=== PATIENT | male | born 1960 | race Caucasian/White ===

== ENCOUNTER 2018-02-24 22:29 | Emergency (ER) | payer OTHER ==
[~2018-02-24] VITALS: Ht 175.3 cm; Wt 83.7 kg
[~2018-02-24 22:29] MED LIST: ACET-1311 PO; NPR500 PO
[2018-02-24 22:32] VITALS: TEMP 37; Ht 175.3 cm; Wt 83.7 kg
[2018-02-24] MEDS ORDERED: SODIUM CHLORIDE 0.9% 1000ML 1,000 ML IV STA (22:49)
[2018-02-24 23:10] LABS: BASO % 0.2 %; BASO ABS # 0.02 K/uL (0-0.2); EOS ABS # 0.27 K/uL (0-0.5); HEMATOCRIT 43.4 % (42-52); HEMOGLOBIN 15.1 g/dL (14.0-18.0); IG# 0.02 K/uL (0.00-0.02); LYMPH % 11.8 %; LYMPH ABS # 1.07 K/uL (1.2-3.4); MEAN CELL VOLUME 87.7 fL (80-100); MEAN CORPUSCULAR HEMOGLOBIN 30.5 pg (25-34); MEAN CORPUSCULAR HGB CONC 34.8 g/dl (32-36); MEAN PLATELET VOLUME 11.4 fL (7.4-10.4); MONO % 13.1 %; MONO ABS # 1.18 K/uL (0.11-0.59); NEUT % 71.7 %; NEUT ABS # 6.48 K/uL (1.4-6.5); PLATELET COUNT 152 K/uL (130-400); RED CELL DISTRIBUTION WIDTH CV 12.7 % (11.5-14.5); RED CELL DISTRIBUTION WIDTH SD 40.8 fL (36.4-46.3); WHITE BLOOD COUNT 9.04 K/uL (4.8-10.8)
[2018-02-24 23:31] LABS: ALBUMIN 3.7 gm/dl (3.4-5.0); CALCIUM 8.8 mg/dl (8.5-10.1); CREATININE 1.16 mg/dl (0.60-1.40); POTASSIUM 3.9 mmol/L (3.5-5.1)
[2018-02-24 23:34] LABS: TOTAL PROTEIN 7.8 gm/dl (6.4-8.2)
[2018-02-25 00:35] VITALS: BP 138/92; PULSE 70; O2SAT 95
--- NOTE | 2018-02-25 02:09 | EMERGENCY ROOM VISIT NOTE ---
History Report prepared by Shaneka: Goldy Moran Under the Supervision of: Dr. Porfirio Sow M.D. First contact with patient: 22:42 Chief Complaint: ILLNESS Stated Complaint: ACHEY, DRY THROAT History of Present Illness The patient is a 57 year old male who presents to the Emergency Room with complaints of persistent generalized achiness that began a couple of days ago. He rates his discomfort as a 3/10 in severity. The patient states that he woke up a couple of days ago with a pain in his muscles just above his knees bilaterally and an aching sensation all over his body. He reports he has also been experiencing a dry sensation in his throat that feels as if he wants to cough. The patient states that he does cough at times. He reports that he took Advil for his symptoms today. The patient states that the Advil did help alleviate his symptoms. He denies sore throat, headache, fever, vomiting, any tick contact, being out in the [place], any physical activity that would cause his symptoms, urinary symptoms, abdominal pain, diarrhea, shortness of breath, and chest tightness. Source of History: patient Onset: a couple of days ago Position: other (global) Symptom Intensity: 3/10 Quality: ache Timing: other (persistent) Modifying Factors (Relieving): other (Advil) Associated Symptoms: + cough, No fevers, No headache, No sorethroat, No chest pain, No SOB, No vomiting, No abdominal pain, No diarrhea, No urinary symptoms Note: Associated symptoms: dry throat Review of Systems See HPI for pertinent positives & negatives. A total of 10 systems reviewed and were otherwise negative. Past Medical & Surgical Medical Problems: (1) Herniated disc Family History Diabetes mellitus Heart disease Hypertension Social History Smoking Status: Never Smoker Alcohol Use: none Drug Use: none Marital Status: Occupation Status: employed Current/Historical Medications Scheduled PRN Acetaminophen (Tylenol), 650 MG PO Q4H PRN Naproxen (Naprosyn), 500 MG PO BID PRN Miscellaneous Medications None (Patient States No Home Meds) Allergies Coded Allergies: No Known Allergies (Unverified , NONE, 01/09/12) Physical Exam Vital Signs Date Time Temp Pulse Resp B/P (MAP) Pulse Ox O2 Delivery O2 Flow Rate FiO2 02/25/18 00:35 70 18 138/92 95 02/24/18 22:32 37.0 96 18 146/89 95 Room Air Physical Exam Constitutional: Vital signs reviewed. Eyes: Pupils are equal round reactive to light. Conjunctiva are noninjected. ENT: Pharynx is clear without erythema or exudate. Mucous membranes are moist. Neck supple without meningeal signs. Respiratory: Clear to auscultation bilaterally. Breath sounds are equal bilaterally. Cardiovascular: Regular rate and rhythm. No rubs or gallops. GI: Soft, nondistended and nontender. Bowel sounds are present. Musculoskeletal: No peripheral edema. No lower extremity tenderness. No erythema swelling or tenderness to the knees or thighs. Integumentary: No cyanosis. Neurological: The patient is awake and alert. No focal deficits. Psychiatric: Normal affect. Medical Decision & Procedures Laboratory Results 02/24/18 22:55 Red Blood Count 4.95, Mean Corpuscular Volume 87.7, Mean Corpuscular Hemoglobin 30.5, Mean Corpuscular Hemoglobin Concent 34.8, Mean Platelet Volume 11.4, Neutrophils (%) (Auto) 71.7, Lymphocytes (%) (Auto) 11.8, Monocytes (%) (Auto) 13.1, Eosinophils (%) (Auto) 3.0, Basophils (%) (Auto) 0.2, Neutrophils # (Auto ) 6.48, Lymphocytes # (Auto) 1.07, Monocytes # (Auto) 1.18, Eosinophils # (Auto ) 0.27, Basophils # (Auto) 0.02 02/24/18 22:55 Test 02/24/18 22:55 White Blood Count 9.04 K/uL (4.8-10.8) Red Blood Count 4.95 M/uL (4.7-6.1) Hemoglobin 15.1 g/dL (14.0-18.0) Hematocrit 43.4 % (42-52) Mean Corpuscular Volume 87.7 fL (80-100) Mean Corpuscular Hemoglobin 30.5 pg (25-34) Mean Corpuscular Hemoglobin Concent 34.8 g/dl (32-36) Platelet Count 152 K/uL (130-400) Mean Platelet Volume 11.4 fL (7.4-10.4) Neutrophils (%) (Auto) 71.7 % Lymphocytes (%) (Auto) 11.8 % Monocytes (%) (Auto) 13.1 % Eosinophils (%) (Auto) 3.0 % Basophils (%) (Auto) 0.2 % Neutrophils # (Auto) 6.48 K/uL (1.4-6.5) Lymphocytes # (Auto) 1.07 K/uL (1.2-3.4) Monocytes # (Auto) 1.18 K/uL (0.11-0.59) Eosinophils # (Auto) 0.27 K/uL (0-0.5) Basophils # (Auto) 0.02 K/uL (0-0.2) RDW Standard Deviation 40.8 fL (36.4-46.3) RDW Coefficient of Variation 12.7 % (11.5-14.5) Immature Granulocyte % (Auto) 0.2 % Immature Granulocyte # (Auto) 0.02 K/uL (0.00-0.02) Anion Gap 6.0 mmol/L (3-11) Est Creatinine Clear Calc Drug Dose 71.1 ml/min Estimated GFR () 81.1 Estimated GFR (Non- 70.0 BUN/Creatinine Ratio 8.6 (10-20) Calcium Level 8.8 mg/dl (8.5-10.1) Total Bilirubin 0.8 mg/dl (0.2-1) Direct Bilirubin 0.2 mg/dl (0-0.2) Aspartate Amino Transf (AST/SGOT) 33 U/L (15-37) Alanine Aminotransferase (ALT/SGPT) 71 U/L (12-78) Alkaline Phosphatase 52 U/L (45-117) Total Creatine Kinase 103 U/L (39-308) Total Protein 7.8 gm/dl (6.4-8.2) Albumin 3.7 gm/dl (3.4-5.0) Lyme Disease IgG Antibody NEG (NEG) Lyme Disease IgM Antibody NEG (NEG) Laboratory results as reviewed by me. Medications Administered Medications (Trade) Dose Ordered Sig/Tyler Route Start Time Stop Time Status Last Admin Dose Admin Sodium Chloride 1,000 ml @ 999 mls/hr Q1H1M STAT IV 02/24/18 22:49 02/24/18 23:49 DC 02/24/18 23:07 999 MLS/HR ED Course 2247: The patient was evaluated in room B05. A complete history and physical exam was performed. 2249: Ordered Sodium Chloride 1000 ml @ 999 mls/hr IV. 0001: I reevaluated the patient and he feels better. He reports that the dryness in his throat is resolved. I discussed the lab results. He verbalized agreement of the treatment plan. The patient was discharged home. Medical Decision This is a 57-year-old male who presents with generalized achiness. Differential diagnosis includes myalgias, myofascial disorder, rhabdomyolysis, dehydration, Lyme disease. I did perform a limited focused review of portions of the patient's old chart on the electronic medical record. The patient has had no recent pertinent visits to this hospital. I did evaluate the patient as noted above. The patient is presenting with generalized weakness. He has no focal symptoms anywhere other than stating that the muscles just above his knees are sore. His examination is unremarkable. IV access was established. I did treat the patient with normal saline IV. I did order and review the patient's blood work as noted in the electronic medical record. His labs are unremarkable. Lyme testing is negative. I did reassess the patient. He states he is feeling much better at this time. I did discuss the test results with him and his family. The cause of his symptoms is unclear and so I did recommend close follow-up with his doctor. He was discharged in good condition. Medication Reconcilliation Current Medication List: was personally reviewed by me Blood Pressure Screening Patient's blood pressure: Elevated blood pressure Blood pressure disposition: Referred to PCP Impression Primary Impression: Body aches Scribe Attestation The scribe's documentation has been prepared under my direct and personally reviewed by me in its entirety. I confirm that the note above accurately reflects all work, treatment, procedures, and medical decision making performed by me. Departure Information Dispostion Home / Self-Care Referrals Nir Spangler M.D. (PCP) Forms HOME CARE DOCUMENTATION FORM, IMPORTANT VISIT INFORMATION, WORK / SCHOOL INSTRUCTIONS Patient Instructions My [facility] Additional Instructions You have been examined and treated today on an emergency basis only. This is not a substitute for, or an effort to provide, complete comprehensive medical care. It is impossible to recognize and treat all injuries or illnesses in a single emergency department visit. It is therefore important that you follow up closely with your physician. Call as soon as possible for an appointment. Return for worsening symptoms or if you develop fever, vomiting, or any other concerning symptoms.
== END 2018-02-25 00:37 | disposition home or self-care (01) ==
LOC: C.EDB 22:30
DX: M79.1 Myalgia (principal); J39.2 Other diseases of pharynx; R03.0 Elevated blood-pressure reading, without diagnosis of hypertension

== ENCOUNTER 2019-01-24 12:02 | Observation (INO) ==
[2019-01-24] MEDS ORDERED: SODIUM CHLORIDE 0.9% 1000ML 1,000 ML IV ONE (12:08)
[2019-01-24] MEDS ORDERED: ONDANSETRON INJ 2 MG/ML 2 ML VIAL IV STA (12:08)
[2019-01-24] MEDS ORDERED: SODIUM CHLORIDE 0.9% 1000ML 1,000 ML IV SCH (13:15)
--- NOTE | 2019-01-24 13:18 | Emergency Department Note ---
Entered by Medina Ramirez acting as a scribe for John Hutchison MD History of Present Illness General Chief complaint: Syncope Time Seen by Provider: 01/24/19 12:07 Source: patient Mode of arrival: EMS History of Present Illness Provider complaint: syncope Onset (ago): minute(s) (prior to arrival) Location: head Severity: similar to prior episodes Pain Consistency: + other (episode) Quality: + other (syncope) Associated symptoms: + other (lightheadedness, nauseous, dizziness. Denies: chest pain, shortness of breath) The patient is a 58 year old male who presents to the Emergency Room with complaints of an episode of syncope beginning prior to arrival. He notes he was discharged from the ED following a diagnosis of influenza A, and lost consciousness while in an Uber home from that visit. The patient reports he felt lightheaded, nauseous, and dizzy, similar to his episode earlier this morning. He states he asked his petroleum transport driver to coverage specialist, and lost consciousness. The petroleum transport driver called EMS, who brought the patient to the ED. He denies shortness of breath or chest pain. The patient states he feels fine currently. Home Medications Home Medications Medication Instructions Recorded Confirmed Type lisinopril 10 mg PO DAILY 01/24/19 01/24/19 History oseltamivir [Tamiflu] 75 mg PO BID 5 Days #10 cap 01/24/19 01/24/19 Rx Allergies Allergy/AdvReac Type Severity Reaction Status Date / Time No Known Allergies Allergy NONE Unverified 01/24/19 12:49 Past Med/Surg History Medical History Herniated disc Family History Other Diabetes Heart disease Hypertension Social History Feels Safe at Home: Yes Smoking Status: Never smoker Review of Systems See HPI for pertinent positives & negatives. and A total of 10 systems reviewed and were otherwise negative Physical Exam Vital Signs Vital Signs - 24 hr 01/24/19 12:07 01/24/19 12:30 01/24/19 13:00 Temperature 36.7 C Temperature Source Oral Sepsis Recent Fever Within 48 Hours No Sepsis Action Taken by Nursing No Action Required Pulse Rate 99 H 69 81 Pulse Rate [Apical] Pulse Rate from SpO2 Sensor 69 81 Pulse Rhythm Regular Respiratory Rate 20 22 24 Blood Pressure 115/74 115/74 136/88 Blood Pressure [Right Arm] Blood Pressure Mean 87 87 104 Blood Pressure Mean [Right Arm] Blood Pressure Position Lying Pulse Oximetry 99 95 97 Oxygen Delivery Method Room Air 01/24/19 14:07 Temperature Temperature Source Sepsis Recent Fever Within 48 Hours Sepsis Action Taken by Nursing Pulse Rate Pulse Rate [Apical] 70 Pulse Rate from SpO2 Sensor Pulse Rhythm Respiratory Rate 16 Blood Pressure Blood Pressure [Right Arm] 128/92 Blood Pressure Mean Blood Pressure Mean [Right Arm] 104 Blood Pressure Position Pulse Oximetry 96 Oxygen Delivery Method Room Air GENERAL: Patient is in no acute distress. HEENT: No acute trauma, normocephalic atraumatic, mucous membranes moist, no nasal congestion, no scleral icterus. NECK: No stridor, no adenopathy, no meningismus, trachea is midline. LUNGS: Clear to auscultation bilaterally, no wheeze, no rhonchi, breath sounds equal. HEART: Without murmurs gallops or rubs, regular rate and rhythm. ABDOMEN: Soft, nontender, bowel sounds positive, no hernias, no peritonitis. EXTREMITIES: No cyanosis or edema, full range of motion of all the joints without pain or difficulty, no signs for acute trauma. NEUROLOGIC: Oriented x 3, no acute motor or sensory deficits, no focal weakness. SKIN: No rash, no jaundice, no diaphoresis. Course 1206: Past medical records reviewed. The patient was evaluated in room C9, and a complete history and physical examination were performed. 1214: I [facility] the [facility] She will evaluate the patient for further management. Consultations Consult[facility] #1[facility] Time: 12:14 Administered Medications Discontinued Medications Sodium Chloride (Nss 1000ml) 1,000 mls @ 999 mls/hr IV .Q1H1M ONE Stop: 01/24/19 13:08 Last Infusion: 01/24/19 13:25 Dose: 0 mls/hr Documented by: [id number] Admin: 01/24/19 12:22 Dose: 999 mls/hr Documented by: [id number] Ondansetron HCl (Zofran) 4 mg IV NOW STA Stop: 01/24/19 12:09 Last Admin: 01/24/19 12:22 Dose: 4 mg Documented by: [id number] Medical Decision Making Differential Diagnosis Differential Diagnosis includes: influenza or flu-like illness, bronchitis or pneumonia, anemia, electrolyte imbalance, dehydration, dysrythmia, orthostasis. Medical Records Attestation: I reviewed the patient's medical records. Home Medications Current Medication List: was personally reviewed by me ECG Data Attestation: I personally reviewed and interpreted this ECG as follows: Indication: syncope Rate (beats per minute): 66 Findings: no PVC and no ST elevation Comparison ECG Date: from (01/24/19) Change: no significant change Blood Pressure Blood Pressure Findings: Normal blood pressure Blood Pressure Disposition: did not require urgent referral MDM Narrative The patient presents for syncope. He had been seen earlier in the day in our ED by me for syncope and eventually was diagnosed with influenza A. He was discharged. His laboratory workup was unrevealing, his cardiac workup was unrevealing. The patient was riding home when he felt lightheaded and dizzy and nauseated, he had a brief syncopal spell and was brought back to the ED by ambulance. Upon arrival, the patient feels dizzy but otherwise well, there was no chest pain with the episode, no dyspnea. Repeat EKG shows a sinus rhythm, no acute ischemia. The patient was given IV saline for hydration, he received IV Zofran Given the recurrent syncope, I do think a hospital stay is warranted. I do suspect his presentation is from the flu. He may be somewhat dehydrated. I did speak to the patient and case packer and sealer. The on-call hospitalist was consulted. Impression & Plan Syncope, Influenza A, Dehydration Discharge Plan Visit Data Chief Complaint: Syncope ED Provider: John Hutchison Discharge Problem: Syncope, Influenza A, Dehydration Patient Disposition: Being Evaluated by Hospitalist Forms Stand Alone Forms: My [facility] [employer] Prescriptions Prescriptions: No Action lisinopril 10 mg tablet 10 mg PO DAILY RF: 0 oseltamivir [Tamiflu] 75 mg capsule 75 mg PO BID 5 Days Qty: 10 RF: 0 Referrals Referrals: PCP,NO [Physician] - Discharge Problem: Syncope Qualifiers: Syncope type: unspecified Qualified Code(s): R55 - Syncope and collapse The scribe's documentation has been prepared under my direction and personally reviewed by me in its entirety. I confirm that the note above accurately reflects all work, treatment, procedures, and medical decision making performed by me.
--- NOTE | 2019-01-24 15:34 | History & Physical Report ---
Date of Service January 24, 2019 Assessment & Plan (1) Influenza A: (2) Syncope: -Admit to [facility] with telemetry -Patient presenting to the ED for a second time today after experiencing a syncopal event in the cab ride home from initial visit where he was diagnosed with influenza A -Syncopal event likely due to vasovagal/hypovolemia duration in the setting of acute illness -Troponin negative x2, EKG without acute ST changes -Continue supportive care with IVF, PRN antiemetics and Tylenol -Monitor orthostatic BPs -Course of Tamiflu (3) Hypertension: -will hold lisinopril for now due to suspected hypovolemia /syncope -Resume as able (4) DVT prophylaxis: -SCDs, ambulate History of Present Illness Chief Complaint: Passed Out Primary Care Provider: Sony Soto 58-year-old male who presents the ED after syncopal event. Patient reports that yesterday he developed a productive cough for light green sputum. Patient reports when he woke up this morning, he felt his usual state of health and went to work. He reports that shortly after arriving to work, he reports he felt lightheaded and nauseous. He was walking out the door to go home when he had a sudden onset of generalized weakness and fell to the ground. Patient denies loss of consciousness. Patient was seen in the ED earlier today and diagnosed with influenza A. Other labs and CXR were unremarkable. He was given IVF and had improvement in his symptoms and was discharged home. Patient took a cab ride home, and while in the cab, he again developed lightheadedness and asked the refrigerated company driver to veneer puller. Patient then reportedly passed out for a few seconds. He was then brought back to the ED for further evaluation. Patient denies associated chest pain, palpitations, shortness of breath. No abdominal pain, vomiting, diarrhea. He denies fevers and chills. No urinary symptoms. On the second ED visit, troponin was rechecked and remains negative. Patient is hemodynamically stable. He was given IVF and IV Zofran. Allergies Allergy/AdvReac Type Severity Reaction Status Date / Time No Known Allergies Allergy NONE Unverified 01/24/19 12:49 Home Medications Home Medications Medication Instructions Recorded Confirmed Type lisinopril 10 mg PO DAILY 01/24/19 01/24/19 History oseltamivir [Tamiflu] 75 mg PO BID 5 Days #10 cap 01/24/19 01/24/19 Rx Past Med/Surg History Medical History Hypertension (Chronic) Surgical History S/P cervical spinal fusion (Chronic) Family History Other Diabetes Heart disease Hypertension Social History Preferred Language: Arabic Communication Ability: Effective Beliefs That Will Affect Care: None Current Living Situation: Family Other Information That Helps Us Care for You: No Feels Safe at Home: Yes Safety Concerns: Feels Safe At This Time Smoking Status: Never smoker Hx Alcohol Use: Yes Hx Substance Use: No Review of Systems ROS per HPI, all other systems reviewed and negative Physical Exam Vital Signs (Past 24 Hours): Last Vital Signs Temp 36.7 C 01/24/19 12:07 Pulse 70 01/24/19 14:07 Resp 16 01/24/19 14:07 BP 128/92 01/24/19 14:07 Pulse Ox 96 01/24/19 14:07 Constitutional: WD/WN, vitals as above Eyes: PERRL, conjunctivae normal, anicteric sclerae ENMT: external ear and nose normal, oropharynx normal Respiratory: normal respiratory effort, lungs clear to auscultation Cardiovascular: Rate/Rhythm: regular rate and regular rhythm Vessels: normal peripheral pulses Extremities: no edema Gastrointestinal (Abdomen): normal bowel sounds, soft, nontender, no hepatosplenomegaly Musculoskeletal: no cyanosis or clubbing, extremities motor strength 5/5 Skin: no rashes, warm and dry Neurologic: PERRL, EOMI, accommodation nl, no face palsy, no dysarthria Psychiatric: A+Ox3, euthymic affect Results & Data Laboratory Results WBC-7.4 H/H-16.5/47.1 Platelets-157 Sodium-136 Potassium-3.6 BUN/creatinine-13/1.1 Glucose-118 POC troponin-negative x2 Influenza A PCR-positive Diagnostic Findings CXR IMPRESSION: No acute process. Code Status & VTE Plan VTE Prophylaxis Plan VTE Prophylaxis will be ordered: Yes Supervising Physician Co-Signing Physician Notes I have seen and examined the patient with nurse practitioner and agree with the assessment and plan as above and would like to comment that patient found to have influenza A after coming to the emergency with malaise and syncopal episode. Patient has been doing well in hospital so far and at present no further syncopal events. On IV fluids and on tamiflu, continue. no arrythmia telemetry events noted on group sales manager, continue to observe On physical exam General: no acute distress Lungs: CTABL, no wheezing Heart: regular rate Abdomen: soft, nontender, bowel sounds Extremities: moves all extremities Neurological: no focal neurological deficits Patient was placed under observation by hospitalist Dr Orona and nurse practitioner on 01/24/19 and will be continue to be followed by my colleague Dr. Lambert.
[2019-01-24] MEDS ORDERED: ACETAMINOPHEN 325 MG TAB PO PRN (15:36)
[2019-01-24] MEDS: OSELTAMIVIR PHOSPHATE 75 MG CAP PO SCH (21:16)
[2019-01-24] MEDS: SODIUM CHLORIDE 0.9% 1000ML 1,000 ML IV SCH (22:02)
[2019-01-25] MEDS: SODIUM CHLORIDE 0.9% 1000ML 1,000 ML IV SCH (05:31)
[2019-01-25 08:16] LABS: Hematocrit (blood only) 41.3 % (42-52); Mean Corpuscular Hgb Conc 33.9 g/dL (32-36); Platelet Count 140 K/uL (130-400); RDW Coefficient of Variation 13.1 % (11.5-14.5); RDW Standard Deviation 42.5 fL (36.4-46.3); Red Blood Count 4.64 M/uL (4.7-6.1)
[2019-01-25 08:44] LABS: BUN Creatinine Ratio 12.7 (10-20); Calcium 8.3 mg/dl (8.5-10.1); Creatinine Clr Calc Pharmacy 90.6 ml/min; Est GFR (African American) 109.5; Est GFR (Non-African American) 94.5
[2019-01-25] MEDS: OSELTAMIVIR PHOSPHATE 75 MG CAP PO SCH (10:17)
--- NOTE | 2019-01-25 12:00 | Hospitalist Progress Note ---
Date of Service January 25, 2019 Assessment & Plan (1) Influenza A: (2) Syncope: Syncope likely due to vasovagal in setting of acute infection Negative Orthostatics Received IV fluids Denies dizziness Tele Monitor --No issues Influenza A Continue Tamiflu (3) Hypertension: Stable Continue home meds (4) DVT prophylaxis: SCDs ambulate Subjective Patient is seen and examined at bedside Doing much better today Minimal cough Offers no other complaints Denies chest pain, SOB, dizziness, nausea, abd pain Tele Monitor--NSR Physical Exam Vital Signs (Past 24 Hours): Last Vital Signs Temp 36.6 C 01/25/19 11:47 Pulse 63 01/25/19 11:47 Resp 18 01/25/19 11:47 BP 124/72 01/25/19 11:47 Pulse Ox 97 01/25/19 11:47 Physical Exam: Physical Exam: Vitals signs as noted above General Appearance:Moderately built and nourished, no apparent distress Head: normocephalic, Atraumatic Eyes: normal inspection, EOMI Neck: supple, Trachea midline Respiratory/Chest: Normal breath sounds, CTA Cardiovascular: S1, S2, No murmur Abdomen/GI:Soft, Non tender, Bowel sounds present Extremities/Musculoskelatal:normal inspection, no edema Neurologic/Psych:AAOX3, grossly no focal neurological deficits Skin: normal color, warm Results & Data Laboratory Results Short CBC 01/25/19 Range/Units 07:28 WBC 5.10 (4.8-10.8) K/uL Hgb 14.0 (14.0-18.0) g/dL Hct 41.3 L (42-52) % Plt Count 140 (130-400) K/uL BMP 01/25/19 07:28 Sodium 140 Potassium 4.0 Chloride 109 H Carbon Dioxide 28 BUN 11 Creatinine 0.90 Glucose 89 Calcium 8.3 L Cardiac Enzymes 01/24/19 Range/Units 15:43 Troponin I < 0.015 (0-0.045) ng/ml
--- NOTE | 2019-01-25 12:04 | Discharge Summary ---
Date of Service January 25, 2019 Admission HPI Per Admitting Provider 58-year-old male who presents the ED after syncopal event. Patient reports that yesterday he developed a productive cough for light green sputum. Patient reports when he woke up this morning, he felt his usual state of health and went to work. He reports that shortly after arriving to work, he reports he felt lightheaded and nauseous. He was walking out the door to go home when he had a sudden onset of generalized weakness and fell to the ground. Patient denies loss of consciousness. Patient was seen in the ED earlier today and diagnosed with influenza A. Other labs and CXR were unremarkable. He was given IVF and had improvement in his symptoms and was discharged home. Patient took a cab ride home, and while in the cab, he again developed lightheadedness and asked the speedboat driver to pullman conductor. Patient then reportedly passed out for a few seconds. He was then brought back to the ED for further evaluation. Patient denies associated chest pain, palpitations, shortness of breath. No abdominal pain, v omiting, diarrhea. He denies fevers and chills. No urinary symptoms. On the second ED visit, troponin was rechecked and remains negative. Patient is hemodynamically stable. He was given IVF and IV Zofran. Admission Exam Per Admitting Provider Constitutional: WD/WN, vitals as above Eyes: PERRL, conjunctivae normal, anicteric sclerae ENMT: external ear and nose normal, oropharynx normal Respiratory: normal respiratory effort, lungs clear to auscultation Cardiovascular: Rate/Rhythm: regular rate and regular rhythm Vessels: normal peripheral pulses Extremities: no edema Gastrointestinal (Abdomen): normal bowel sounds, soft, nontender, no hepatosplenomegaly Musculoskeletal: no cyanosis or clubbing, extremities motor strength 5/5 Skin: no rashes, warm and dry Neurologic: PERRL, EOMI, accommodation nl, no face palsy, no dysarthria Psychiatric: A+Ox3, euthymic affect Principal Diagnosis Discharge Information Discharge Diagnosis Syncope Influenza A Discharge Goals Decrease discomfort,Improve disease control, Improve function Discharge Activity Limitations Resume your previous activity Discharge Data Allergies Allergy/AdvReac Type Severity Reaction Status Date / Time No Known Allergies Allergy NONE Unverified 01/24/19 12:49 Procedures Performed CXR: No acute process Hospital Course (1) Influenza A: (2) Syncope: Syncope likely due to vasovagal in setting of acute infection Negative Orthostatics Received IV fluids Denies dizziness Tele Monitor --No issues Influenza A Continue Tamiflu (3) Hypertension: Stable Continue home meds (4) DVT prophylaxis: SCDs ambulate Total Time Total Time Spent Total Time Spent (In Minutes): 32 minutes Total Time Includes: Examination of the Patient, Discharge Planning, Medication Reconciliation and Other Discharge Plan Discharge Items Patient Disposition: Home - Self-Care Reason For Visit: SYNCOPE, INFUENZA A Discharge Diagnosis: Syncope Influenza A Discharge Goals: Decrease discomfort, Improve disease control and Improve function Activity: Resume your previous activity Exercise/Sports: Gradually increase as tolerated Non-emergency contact: Primary Care Provider Call non-emergency contact if: you have any medication questions, your symptoms worsen, your pain is not controlled, your pain is worsening, your pain is unusual for you, your pain is concerning for you and you have a fever Follow-up/Referrals: Sony Soto PA [Primary Care Provider] - Diet: Heart Healthy Addtl Provider Instructions: Follow up with your PCP Sony Soto PA-C on February 01, 2019 at 9:45AM Complete the Tamiflu course as advised Seek immediate medical attention if your symptoms reoccur or worsen Prescriptions: Continued lisinopril 10 mg tablet 10 mg PO DAILY RF: 0 oseltamivir [Tamiflu] 75 mg capsule 75 mg PO BID 5 Days Qty: 10 RF: 0 Stand-Alone Forms: Pending Sale To [facility] Discharge Orders: Discharge Order (Routine); Ordered 01/25/19 Ordered By: Arthur Lambert Admission Data Admit Date/Time: 01/24/19 13:06 Attending Provider: Arthur Lambert Admit Provider: Tripp Orona Primary Care Provider: Sony Soto Service: Telemetry Medical Other Interventions: Discharge Summary Assessment (RN) Last Done: 01/25/19 12:20 Pending Studies at Discharge: No DC Date/Time DO NOT enter until pt leaves facility: 01/25/19 13:55
== END 2019-01-25 13:55 | disposition home or self-care (01) ==
LOC: ED 12:02 → 2N 12:02

== ENCOUNTER 2023-08-08 11:40 | Inpatient (IN) ==
--- NOTE | 2023-08-08 12:12 | XRay Report ---
XR chest 1V not portable HISTORY: 62 years-old Male Chest pain, nonspecific COMPARISON: 07/16/2023 TECHNIQUE: AP view of the chest FINDINGS: Cardiac mediastinal and hilar silhouettes are within normal limits. No pneumothorax, pleural effusion , airspace consolidation or pulmonary edema. Bones appear grossly intact. IMPRESSION: No acute process. ACT 112: Negative or not required by law. The above report was generated using voice recognition software. It may contain grammatical, syntax o r spelling errors. Electronically signed by: Garrett Murcia M.D. 08/08/2023 12:11 PM
[2023-08-08] MEDS ORDERED: fentaNYL citrate PF 100 MCG/2 ML VIAL IV STA (12:26)
[2023-08-08 12:27] LABS: Basophils # (auto) 0.08 K/uL (0.00-0.20); Basophils % (auto) 1.1 %; Eosinophils # (auto) 0.44 K/uL (0.00-0.50); Eosinophils % (auto) 5.9 %; Hematocrit (blood only) 45.6 % (42.0-52.0); Hemoglobin 15.6 g/dl (14.0-18.0); Immature Granulocytes # (auto) 0.03 K/uL (0.01-0.20); Immature Granulocytes % (auto) 0.4 %; Lymphocytes # (auto) 1.77 K/uL (1.20-3.40); Lymphocytes % (auto) 23.6 %; Mean Corpuscular Hemoglobin 30.1 pg (25.0-34.0); Mean Corpuscular Hgb Conc 34.2 g/dL (32.0-36.0); Mean Corpuscular Volume 87.9 fL (80.0-100.0); Mean Platelet Volume 12.6 fL (9.4-12.4); Monocytes # (auto) 0.72 K/uL (0.11-0.59); Monocytes % (auto) 9.6 %; Neutrophils # (auto) 4.47 K/uL (1.40-6.50); Neutrophils % (auto) 59.4 %; Platelet Count 179 K/uL (130-400); RDW Coefficient of Variation 12.2 % (11.5-14.5); RDW Standard Deviation 39.1 fL (36.4-46.3); Red Blood Count 5.19 M/uL (4.70-6.10); White Blood Count 7.51 K/ul (4.8-10.8)
--- NOTE | 2023-08-08 12:32 | Emergency Department Note ---
Impression & Plan Chest pain, Non-ST elevation UT (NSTEMI) ED Provider Note HISTORY OF PRESENT ILLNESS: Patient is a 62-year-old male presenting with chest pain. Patient reports that he was moving a couch earlier today and was sitting watching it burned when he developed left-sided chest pain. He reports the pain started about 1 hour prior to arrival. He took 2 nitro and an 81 mg aspirin and has had some slight relief of the chest pain. However, the chest pain is still present though not as intense. He denies any significant shortness of breath, nausea or vomiting. Reports the pain does travel down his left arm. Patient is on aspirin and Plavix. Denies any DVT or PE history. He was recently admitted to the hospital for heart catheterization and was found to have diffuse atherosclerosis with branch vessel stenosis. Noted to have a diagonal branch moderate size lesion of 90%. ROS: as above PHYSICAL EXAM: Constitutional: Patient appears in no acute distress. HENT: Head: Normocephalic and atraumatic. Eyes: EOMI, PERRL Mouth/Throat: Mucous membranes moist. Neck: Trachea midline. Neck supple. Cardiovascular: RRR, No murmurs, rubs or gallops. Intact distal pulses. Pulmonary/Chest: No respiratory distress. Breath sounds clear and equal bilaterally. No wheezes or rales. Abdominal: Abdomen soft, no tenderness, rebound or guarding. Musculoskeletal: No edema, tenderness or deformity noted. Skin: Warm and dry. No rash, erythema, pallor or cyanosis Psychiatric: Appropriate mood and affect for situation. Neurological: Alert and keenly responsive. CN II-XII grossly intact, moving all extremities equally and fully. MDM: - Vitals signs stable. - History obtained via patient. Patient presents with chest pain. Patient reports he was moving hot earlier today and was then seated and developed left- sided chest pain. He reports the pain started about 1 hour prior to arrival in the ER. He took 2 sublingual nitro and an 81 mg aspirin and had some slight relief of his chest pain. However, the pain is still present. He is on aspirin and Plavix. Denies any DVT or PE history. Denies any significant shortness of breath, nausea or vomiting. - Chronic conditions affecting care: HTN; CAD - Differential diagnoses include, but are not limited to: Acute coronary syndrome; pulmonary embolism; dissection; tension pneumothorax; esophageal rupture; pneumonia - Order placed for continuous cardiac monitoring. At this time, monitor showed rate of 65 bpm with normal sinus rhythm, per my interpretation. - External medical records reviewed. Cardiac catheterization note dated 07/18 was reviewed. Patient had significant stenosis of the proximal D1 artery at 90%. His LAD was 50% stenosed. - EKG reviewed by myself showed normal sinus rhythm. Rate 54 bpm. QTc 377. No acute ischemic changes. - Laboratory workup interpreted by myself showed normal WBC; stable electrolytes ; normal initial troponin - CXR negative for pneumonia, per my interpretation - Repeat troponin significantly elevated at 176.6. Repeat EKG shows normal sinus rhythm. Rate 59 bpm. QTc 392. Noted to have PVCs. No acute ischemic changes. - HEART score 6 (+1 history; +0 EKG; +1 age; +2 risk factors; +2 troponin) amounting to a moderate score - Discussion was had with social work administrator about patient's case and need for admission - Hospitalist consulted for admission - [facility] ASSESSMENT AND PLAN: Diagnosis: chest pain; NSTEMI Plan: admit Past Med/Surg History Medical History (Updated 08/08/23 @ 16:06 by Shanna Arechiga MD) Hypertension Surgical History S/P cervical spinal fusion Family History Other Diabetes Heart disease Hypertension Social History Smoking Status: Never smoker Second Hand Exposure: No; Do You Dip or Chew Tobacco: No; Hx Alcohol Use: Yes Alcohol type: beer Hx Substance Use: No Preferred Language: Tanzanian Communication Ability: Effective Motor And Generator Brush Cutter Required: No Beliefs That Will Affect Care: None Current Living Situation: Family Feels Safe at Home: Yes Assistive Devices: Glasses Allergies Allergies Allergy/AdvReac Type Severity Reaction Status Date / Time No Known Allergies Allergy Verified 03/26/19 19:14 Home Meds Previous Rx's Medication Instructions Recorded aspirin 81 mg tablet,delayed 81 mg PO QAM #30 tabs 07/19/23 release atorvastatin 40 mg tablet 40 mg PO QAM #30 tabs 07/19/23 clopidogrel 75 mg tablet 75 mg PO QAM #30 tabs 07/19/23 metoprolol tartrate 25 mg tablet 12.5 mg PO DAILY #30 tabs 07/19/23 nitroglycerin 0.4 mg sublingual 0.4 mg sublingual Q5M PRN chest 07/19/23 tablet (Nitrostat) pain #90 tabs Results & Data (ED) Vital Signs Vital Signs - 24 hr 08/08/23 11:48 08/08/23 12:48 08/08/23 13:40 Temperature 36.6 C Temperature Source Temporal Artery Scan Pulse Rate 64 48 L Pulse Rate [Bilateral] 68 Respiratory Rate 18 18 Respiratory Effort / Characteristics Non-Labored Spontaneous Respiratory Depth Normal Respiratory Pattern Regular Blood Pressure 106/68 Blood Pressure [Right Arm] 137/94 Blood Pressure Mean 80 Blood Pressure Mean [Right Arm] 108 Pulse Oximetry 99 96 Oxygen Delivery Method Room Air Room Air Sepsis Recent Fever Within 48 Hours No Sepsis New/Unexplained Change in Mental Status N/A Sepsis Action Taken by Nursing No Action Required 08/08/23 15:00 08/08/23 11:52 08/08/23 11:52 Temperature Temperature Source Pulse Rate 68 Pulse Rate [Bilateral] 67 Respiratory Rate 18 Respiratory Effort / Characteristics Respiratory Depth Respiratory Pattern Blood Pressure Blood Pressure [Right Arm] 111/64 Blood Pressure Mean Blood Pressure Mean [Right Arm] 79 Pulse Oximetry 98 98 98 Oxygen Delivery Method Room Air Sepsis Recent Fever Within 48 Hours Sepsis New/Unexplained Change in Mental Status Sepsis Action Taken by Nursing Laboratory Data 08/08/23 11:58 08/08/23 11:58 Lab Results 08/08/23 08/08/23 08/08/23 Range/Units 11:58 11:58 14:44 WBC 7.51 (4.8-10.8) K/ul RBC 5.19 (4.70-6.10) M/uL Hgb 15.6 (14.0-18.0) g/dl Hct 45.6 (42.0-52.0) % MCV 87.9 (80.0-100.0) fL MCH 30.1 (25.0-34.0) pg MCHC 34.2 (32.0-36.0) g/dL RDW Std Deviation 39.1 (36.4-46.3) fL RDW Coeff of Kelsea 12.2 (11.5-14.5) % Plt Count 179 (130-400) K/uL MPV 12.6 H (9.4-12.4) fL Immature Gran % (Auto) 0.4 % Neut % (Auto) 59.4 % Lymph % (Auto) 23.6 % Castro % (Auto) 9.6 % Eos % (Auto) 5.9 % Baso % (Auto) 1.1 % Neut # (Auto) 4.47 (1.40-6.50) K/uL Lymph # (Auto) 1.77 (1.20-3.40) K/uL Castro # (Auto) 0.72 H (0.11-0.59) K/uL Eos # (Auto) 0.44 (0.00-0.50) K/uL Baso # (Auto) 0.08 (0.00-0.20) K/uL Immature Gran # (Auto) 0.03 (0.01-0.20) K/uL Sodium 138 (136-145) mmol/L Potassium 4.0 (3.5-5.1) mmol/L Chloride 105 (98-107) mmol/L Carbon Dioxide 28 (21-32) mmol/L Anion Gap 5 (3-11) BUN 13 (6-23) mg/dl Creatinine 1.00 (0.6-1.4) mg/dl Est Cr Clr Drug Dosing Not Reportable Est GFR ( Amer) 93.7 ml/min Est GFR (Non-Af Amer) 80.9 ml/min BUN/Creatinine Ratio 13.0 (10-20) Glucose 114 H (70-99(Fasting)) mg/dl Calcium 10.0 (8.6-10.3) mg/dl Total Bilirubin 0.7 (0.2-1.0) mg/dl AST 29 (13-39) U/L ALT 47 (7-52) U/L Alkaline Phosphatase 43 (34-104) U/L Troponin I High Sens 10.5 176.6 H* D (0-20) pg/ml Total Protein 7.2 (6.0-8.3) gm/dl Albumin 4.6 (3.4-5.0) gm/dl Globulin 2.6 (2.5-4.0) gm/dl Albumin/Globulin Ratio 1.8 (0.9-2) Lipase 29 (11-82) U/L Administered Medications Discontinued Medications Fentanyl Citrate (Fentanyl Citrate Pf 100 Mcg/2 Ml Vial) 50 mcg IV NOW STA Stop: 08/08/23 12:27 Last Admin: 08/08/23 14:09 Dose: Not Given Documented By: TBS Imaging Data Radiologist's Impression: Chest X-Ray 08/08/23 11:52 XR chest 1V not portable HISTORY: 62 years-old Male Chest pain, nonspecific COMPARISON: 07/16/2023 TECHNIQUE: AP view of the chest FINDINGS: Cardiac mediastinal and hilar silhouettes are within normal limits. No pneumothorax, pleural effusion, airspace consolidation or pulmonary edema. Bones appear grossly intact. IMPRESSION: No acute process. ACT 112: Negative or not required by law. The above report was generated using voice recognition software. It may contain grammatical, syntax or spelling errors. Electronically signed by: Garrett Murcia M.D. 08/08/2023 12:11 PM Discharge Plan Visit Data Chief Complaint: Chest Pain Stated Complaint: CHEST PAIN ED Provider: Shanna Arechiga Discharge Problem: Chest pain, Non-ST elevation UT (NSTEMI) Forms Stand Alone Forms: [facility]bel Prescriptions Prescriptions: No Action atorvastatin 40 mg Tablet 40 mg PO QAM Qty: 30 0RF clopidogrel 75 mg Tablet 75 mg PO QAM Qty: 30 0RF aspirin 81 mg Tablet,Delayed Release (Dr/Ec) 81 mg PO QAM Qty: 30 0RF nitroglycerin [Nitrostat] 0.4 mg Tablet, Sublingual 0.4 mg sublingual Q5M PRN (Reason: chest pain) Qty: 90 0RF metoprolol tartrate 25 mg Tablet 12.5 mg PO DAILY Qty: 30 0RF Referrals Referrals: Sony Soto PA-C [Primary Care Provider] -
[2023-08-08 12:44] LABS: Alanine Aminotransferase 47 U/L (7-52); Albumin Globulin Ratio 1.8 (0.9-2); Albumin Level 4.6 gm/dl (3.4-5.0); Alkaline Phosphatase 43 U/L (34-104); Anion Gap 5 (3-11); Aspartate Aminotransferase 29 U/L (13-39); Bilirubin,Total 0.7 mg/dl (0.2-1.0); Blood Urea Nitrogen 13 mg/dl (6-23); Carbon Dioxide 28 mmol/L (21-32); Chloride 105 mmol/L (98-107); Est GFR (African American) 93.7 ml/min; Est GFR (Non-African American) 80.9 ml/min; Globulin 2.6 gm/dl (2.5-4.0); Glucose 114 mg/dl (70-99(Fasting)); Lipase 29 U/L (11-82); Sodium 138 mmol/L (136-145); Total Protein 7.2 gm/dl (6.0-8.3)
[2023-08-08 12:50] LABS: Troponin I High Sensitivity 10.5 pg/ml (0-20)
--- NOTE | 2023-08-08 13:21 | Electrocardiogram Report ---
Test Reason : Blood Pressure : / mmHG Vent. Rate : 054 BPM Atrial Rate : 054 BPM P-R Int : 170 ms QRS Dur : 088 ms QT Int : 398 ms P-R-T Axes : 030 -24 009 degrees QTc Int : 377 ms Sinus bradycardia Otherwise normal ECG When compared with ECG of 19-JUL-2023 00:36, T wave inversion no longer evident in Anterolateral leads Confirmed by Jarocho Galan ([id number]) on 08/08/2023 1:20:39 PM Referred By: Confirmed By:Jarocho Galan
[2023-08-08] MEDS ORDERED: ASPIRIN CHEW 324 MG PO STA (16:06)
[2023-08-08] MEDS ORDERED: Heparin IV Adult Wt-Based Low-Dose WITH Bolus Protocol IV SCH (17:22)
--- NOTE | 2023-08-08 17:40 | History & Physical Report ---
Date of Service August 08, 2023 Assessment & Plan (1) Chest pain: Plan: Presented with exertional chest pain with increasing troponin Cardiac cath on 07/18/2023 showed diffuse atherosclerosis with branch vessel stenosis involving LAD 40 to 50% proximal nonobstructive by FFR with culprit lesion appears to be moderate sized diagonal branch with a long 90% block Medical treatment was contemplated He has been on beta-breanne 12.5 mg daily and also on aspirin and Plavix He received 2 nitro sublingual at home and we will put him on Nitropaste for additional pain control Initial troponin was 10.5 that went up to 176.6 on repeat test-we will get serial cardiac enzymes EKG was in sinus bradycardia without any other acute ST-T wave changes Has been started on intravenous heparin and will continue aspirin and Plavix Cardiology evaluation in the morning (2) Non-ST elevation CA (NSTEMI): Plan: Likely has non-ST elevation CA with increasing troponin (3) CAD (coronary artery disease): Plan: As above (4) Hypertension: Plan: Remains controlled DVT prophylaxis IV heparin CODE STATUS Full History of Present Illness Chief Complaint: Chest pain Primary Care Provider: Sony Soto PA-C 62-year-old male with a significant past medical history of hypertension, prediabetes and also recent diagnosis of significant CAD on cardiac cath following NSTEMI has been complaining of chest pain since this afternoon. He has been helping his sons to moving furniture , following that he was taking rest on a couch and got chest pressure followed by chest pain that radiated to left arm. He took 2 nitro sublingual and also 81 mg aspirin with slight improvement of the chest pain. He still has some chest pressure during examination but did not have any sweating, any palpitation, any shortness of breath, any nausea or vomiting associated with it He has been getting aspirin and Plavix and also beta-breanne and lisinopril following recent cardiac cath with significant CAD when medical management was contemplated. His initial troponin was 10.5 and repeat check came up to 176.6 and at the time he was advised admission. He was started with intravenous heparin and after getting full dose of aspirin and he will be admitted to telemetry unit for continuation of care. Allergies Allergy/AdvReac Type Severity Reaction Status Date / Time No Known Allergies Allergy Verified 03/26/19 19:14 Home Medications Medication Instructions Recorded Confirmed Type aspirin 81 mg tablet,delayed 81 mg PO QAM #30 tabs 07/19/23 08/08/23 Rx release atorvastatin 40 mg tablet 40 mg PO QAM #30 tabs 07/19/23 08/08/23 Rx clopidogrel 75 mg tablet 75 mg PO QAM #30 tabs 07/19/23 08/08/23 Rx metoprolol tartrate 25 mg tablet 12.5 mg PO DAILY #30 tabs 07/19/23 08/08/23 Rx nitroglycerin 0.4 mg sublingual 0.4 mg sublingual Q5M PRN chest 07/19/23 08/08/23 Rx tablet (Nitrostat) pain #90 tabs Past Med/Surg History Medical History (Updated 08/08/23 @ 17:34 by Sissy Tai MD) Hypertension Surgical History S/P cervical spinal fusion Family History Other Diabetes Heart disease Hypertension Social History Smoking Status: Former smoker Second Hand Exposure: No; Do You Dip or Chew Tobacco: No; Hx Alcohol Use: Yes Alcohol type: beer Hx Substance Use: No Preferred Language: Chadian Communication Ability: Effective Benzene Worker Required: No Beliefs That Will Affect Care: None Current Living Situation: Family Other Information That Helps Us Care for You: No Feels Safe at Home: Yes Safety Concerns: Feels Safe At This Time Assistive Devices: Glasses Review of Systems Review of Systems: All systems reviewed and are unremarkable except as noted below Physical Exam Physical Exam: Lying in bed with minimal chest pressure but without any other symptoms Constitutional: well developed, well nourished and + ill appearing Eyes: PERRL, conjunctivae normal, anicteric sclerae ENMT: external ear and nose normal, oropharynx normal Neck: trachea midline, no thyromegaly Respiratory: normal respiratory effort, lungs clear to auscultation Cardiovascular: Rate/Rhythm: regular rate and regular rhythm Heart Sounds: normal S1 and normal S2; no murmur Extremities: no edema Gastrointestinal (Abdomen): Inspection/Auscultation: normal bowel sounds; abdomen not distended Percussion/Palpation: abdomen soft; abdomen nontender Musculoskeletal: No acute arthritis involving any joint Neurologic: normal touch/pain/proprioception and moves all extremities; no focal motor deficits Results & Data Results & Data Vital Signs (Past 12 Hours) Vital Signs Temp Pulse Pulse Resp BP BP Pulse Ox 08/08/23 16:50 62 08/08/23 11:52 68 98 08/08/23 11:52 98 08/08/23 15:00 67 18 111/64 98 08/08/23 13:40 68 18 137/94 96 08/08/23 12:48 48 L 08/08/23 11:48 36.6 C 64 18 106/68 99 O2 Del Method 08/08/23 16:50 08/08/23 11:52 08/08/23 11:52 Room Air 08/08/23 15:00 08/08/23 13:40 Room Air 08/08/23 12:48 08/08/23 11:48 Room Air Laboratory Results Short CBC 08/08/23 Range/Units 11:58 WBC 7.51 (4.8-10.8) K/ul Hgb 15.6 (14.0-18.0) g/dl Hct 45.6 (42.0-52.0) % Plt Count 179 (130-400) K/uL BMP 08/08/23 11:58 Sodium 138 Potassium 4.0 Chloride 105 Carbon Dioxide 28 BUN 13 Creatinine 1.00 Glucose 114 H Calcium 10.0 Liver Function 08/08/23 Range/Units 11:58 Total Bilirubin 0.7 (0.2-1.0) mg/dl AST 29 (13-39) U/L ALT 47 (7-52) U/L Alkaline Phosphatase 43 (34-104) U/L Albumin 4.6 (3.4-5.0) gm/dl Medications Administered Current Inpatient Medications Heparin Sodium (Porcine) (Heparin Sod (Porcine) 1000 Unit/Ml) 1 units IV NOW ONE Stop: 08/08/23 17:35 Heparin Sodium/Dextrose (Heparin Iv Adult Wt-Based Low-Dose With Bolus Protocol) 1 each IV Q15M [facility]; Protocol Stop: 08/08/23 18:08 Heparin Sodium/Dextrose (Heparin Sodium/Dextrose) 25,000 units in 500 mls @ 0.02 mls/hr IV .Q24H [facility]; Protocol Stop: 09/07/23 17:44 Code Status & VTE Plan VTE Prophylaxis Plan VTE Prophylaxis will be ordered: Yes
[2023-08-08] MEDS ORDERED: HEPARIN SODIUM/DEXTROSE 25,000 UNITS/500 ML BAG IV SCH (19:15)
[2023-08-08] MEDS ORDERED: HEPARIN SOD (PORCINE) 1000 UNIT/ML IV ONE (19:15)
[2023-08-08 19:30] LABS: Partial Thromboplastin Ratio 0.9; Partial Thromboplastin Time 24.5 Seconds (21.0-31.0)
[2023-08-08] MEDS: NITROGLYCERIN 2% OINTMENT 30GM TUBE EXT SCH ×2 (19:34→23:59)
[2023-08-08 21:39] LABS: Troponin I High Sensitivity 3126.9 pg/ml (0-20)
[2023-08-09] MEDS ORDERED: SODIUM CHLORIDE 0.9% 1,000 ML IV ONE (00:04)
[2023-08-09 00:38] LABS: Magnesium 2.2 mg/dl (1.7-2.4)
[2023-08-09 02:06] LABS: Partial Thromboplastin Ratio 1.5
[2023-08-09 06:43] LABS: Basophils # (auto) 0.06 K/uL (0.00-0.20); Basophils % (auto) 0.8 %; Eosinophils # (auto) 0.33 K/uL (0.00-0.50); Eosinophils % (auto) 4.1 %; Hemoglobin 14.6 g/dl (14.0-18.0); Immature Granulocytes # (auto) 0.02 K/uL (0.01-0.20); Immature Granulocytes % (auto) 0.3 %; Lymphocytes # (auto) 1.85 K/uL (1.20-3.40); Lymphocytes % (auto) 23.2 %; Mean Corpuscular Hemoglobin 30.2 pg (25.0-34.0); Mean Corpuscular Hgb Conc 34.8 g/dL (32.0-36.0); Mean Platelet Volume 12.4 fL (9.4-12.4); Monocytes # (auto) 0.84 K/uL (0.11-0.59); Monocytes % (auto) 10.5 %; Neutrophils # (auto) 4.89 K/uL (1.40-6.50); Neutrophils % (auto) 61.1 %; Partial Thromboplastin Ratio 1.4; Partial Thromboplastin Time 38.7 Seconds (21.0-31.0); Platelet Count 153 K/uL (130-400); RDW Coefficient of Variation 12.6 % (11.5-14.5); RDW Standard Deviation 39.8 fL (36.4-46.3); Red Blood Count 4.83 M/uL (4.70-6.10); White Blood Count 7.99 K/ul (4.8-10.8)
[2023-08-09] MEDS: NITROGLYCERIN SL 0.4 MG/TAB TAB SL PRN ×2 (07:17→08:24)
[2023-08-09 07:21] LABS: BUN Creatinine Ratio 15.4 (10-20); Creatinine Clr Calc Pharmacy 85.2 ml/min; Est GFR (African American) 105.1 ml/min; Est GFR (Non-African American) 90.6 ml/min; Potassium 3.9 mmol/L (3.5-5.1)
[2023-08-09 07:31] LABS: Troponin I High Sensitivity 2871.9 pg/ml (0-20)
[2023-08-09] MEDS ORDERED: ASPIRIN 81 MG CHEW ONE (08:47)
[2023-08-09] MEDS: CLOPIDOGREL BISULFATE 75 MG TAB PO SCH (08:57)
[2023-08-09] MEDS ORDERED: fentaNYL citrate PF 100 MCG/2 ML VIAL ONE ×2 (09:13→10:22)
[2023-08-09] MEDS ORDERED: HEPARIN (PORCINE) 1000 UNIT/ML 10 ML (CATH LAB USE ONLY) ONE (09:57)
[2023-08-09] MEDS ORDERED: niCARdipine HCL INJ 2.5 MG/ML 10 ML AMP ONE (09:57)
[2023-08-09] MEDS ORDERED: NITROGLYCERIN/D5W 100MCG/ML 20ML SYR ONE (09:57)
[2023-08-09] MEDS ORDERED: MIDAZOLAM HCL 1 MG/ML 2ML VIAL ONE (09:57)
--- NOTE | 2023-08-09 10:14 | Pre Anesthesia Assessment ---
Date of Service August 09, 2023 Pre Sedation Assessment Vital Signs Temp Pulse Pulse Resp BP BP BP 08/09/23 09:04 50 L 16 109/68 08/09/23 08:26 98.2 F 58 L 16 108/67 08/09/23 07:42 98.2 F 59 L 14 127/71 08/09/23 03:36 97.5 F L 58 L 16 116/67 08/08/23 23:57 98/61 L 08/08/23 23:41 56 L 08/08/23 23:05 98.2 F 47 L 16 108/76 08/08/23 20:26 59 L 20 110/79 08/08/23 19:00 73 18 126/77 08/08/23 16:50 62 08/08/23 11:52 68 08/08/23 11:52 08/08/23 15:00 67 18 111/64 08/08/23 13:40 68 18 137/94 08/08/23 12:48 48 L 08/08/23 11:48 97.9 F 64 18 106/68 Pulse Ox O2 Del Method 08/09/23 09:04 98 Room Air 08/09/23 08:26 97 Room Air 08/09/23 07:42 96 Room Air 08/09/23 03:36 94 Room Air 08/08/23 23:57 08/08/23 23:41 08/08/23 23:05 96 Room Air 08/08/23 20:26 93 Room Air 08/08/23 19:00 96 Room Air 08/08/23 16:50 08/08/23 11:52 98 08/08/23 11:52 98 Room Air 08/08/23 15:00 98 08/08/23 13:40 96 Room Air 08/08/23 12:48 08/08/23 11:48 99 Room Air Cardiovascular RRR, no murmur, no edema Respiratory normal respiratory effort, lungs clear to auscultation Pre-Sedation Airway Assessment Smoking Status: Former smoker Hx Sleep Apnea: No Hx Difficult Intubation: No Short, Thick Neck: No Thyromental Distance: > or= 3.5 Finger Breadths Oral Cavity: + WNL Mallampati Class: III ASA: ASA3 NPO Status Date of Last Intake of Fluids: 08/09/23 Time of Last Intake of Fluids: 08:00 Last Oral Intake of Fluids Comment: sips with pills Date of Last Intake of Solid Food: 08/08/23 Time of Last Intake of Solid Foods: 10:00 Procedure Planning Contraindications for Sedation: none Current Medications Reviewed: Yes Notes The planned sedation has been discussed with the patient. Informed Consent was obtained. I have identified the patient, determined the appropriateness of sedation and have assessed the patient immediately prior to the procedure. All medicine(s) and interventions are by my order.
--- NOTE | 2023-08-09 10:33 | Cardiology Consultation ---
Date of Consultation August 09, 2023 Assessment & Plan (1) NSTEMI (non-ST elevated myocardial infarction): (2) CAD (coronary artery disease): Plan Patient seen and examined with recurrent chest pain this morning. Known coronary disease with moderate left anterior sending and high-grade diagonal disease present. Pain relieved with sublingual nitroglycerin this morning despite antiplatelet therapy and anticoagulation with heparin We will refer for acute diagnostic cardiac catheterization question coronary invention LAD LAD diagonal Patient aware of plans Discussed with and daughter History of Present Illness Reason for Consultation: Non-STEMI Requesting Physician: Dr. Yoder Attending Physician: Adalgisa Yoder MD History of Present Illness Patient is a 62-year-old male with recent hospitalization with non-STEMI myocardial infarction transient hemodynamic instability and intermittent left bundle branch block. Patient underwent diagnostic cardiac catheterization on 07/18/2023 with moderate nonobstructive disease left anterior sending along stenosis within the left anterior sending diagonal modest caliber vessel but long in distribution. Patient managed medically though blood pressure with limited therapies discharged on low-dose beta-breanne aspirin clopidogrel and statin Patient presents now initially having done well but yesterday after physical activity developed substernal chest pain consistent with prior angina with resultant ER evaluation. Acute EKG changes not present however troponins elevated. Patient has had recurrent chest pain this morning despite IV heparin Allergies Allergy/AdvReac Type Severity Reaction Status Date / Time No Known Allergies Allergy Verified 03/26/19 19:14 Home Medications Medication Instructions Recorded Confirmed Type aspirin 81 mg tablet,delayed 81 mg PO QAM #30 tabs 07/19/23 08/08/23 Rx release atorvastatin 40 mg tablet 40 mg PO QAM #30 tabs 07/19/23 08/08/23 Rx clopidogrel 75 mg tablet 75 mg PO QAM #30 tabs 07/19/23 08/08/23 Rx metoprolol tartrate 25 mg tablet 12.5 mg PO DAILY #30 tabs 07/19/23 08/08/23 Rx nitroglycerin 0.4 mg sublingual 0.4 mg sublingual Q5M PRN chest 07/19/23 08/08/23 Rx tablet (Nitrostat) pain #90 tabs Patient History Medical History Hypertension Surgical History S/P cervical spinal fusion Family History Other Diabetes Heart disease Hypertension Social History Smoking Status: Former smoker Second Hand Exposure: No; Do You Dip or Chew Tobacco: No; Hx Alcohol Use: Yes Alcohol type: beer Hx Substance Use: No Preferred Language: Kyrgyz Communication Ability: Effective Dispatcher Relay Required: No Beliefs That Will Affect Care: None Current Living Situation: Family Other Information That Helps Us Care for You: No Feels Safe at Home: Yes Safety Concerns: Feels Safe At This Time Assistive Devices: Glasses Physical Exam Constitutional: WD/WN, vitals as above Eyes: PERRL, conjunctivae normal, anicteric sclerae ENMT: external ear and nose normal, oropharynx normal Neck: trachea midline, no thyromegaly Respiratory: normal respiratory effort, lungs clear to auscultation Cardiovascular: Rate/Rhythm: regular rate and regular rhythm Heart Sounds: normal S1 and normal S2; no gallop and no murmur Palpation: normal PMI Vessels: normal carotid upstroke and radial pulses present; no JVD and no carotid bruit Extremities: no edema Gastrointestinal (Abdomen): normal bowel sounds, soft, nontender, no hepatospl enomegaly Musculoskeletal: no cyanosis or clubbing, extremities motor strength 5/5 Skin: no rashes, warm and dry Neurologic: PERRL, EOMI, accommodation nl, no face palsy, no dysarthria Psychiatric: A+Ox3, euthymic affect Results & Data Vital Signs (Past 12 Hours) Vital Signs Temp Pulse Pulse Resp BP BP Pulse Ox 08/09/23 07:00 53 L 08/09/23 09:04 50 L 16 109/68 98 08/09/23 08:26 36.8 C 58 L 16 108/67 97 08/09/23 07:42 36.8 C 59 L 14 127/71 96 08/09/23 03:36 36.4 C L 58 L 16 116/67 94 08/08/23 23:57 98/61 L 08/08/23 23:41 56 L 08/08/23 23:05 36.8 C 47 L 16 108/76 96 O2 Del Method 08/09/23 07:00 08/09/23 09:04 Room Air 10/10/23 08:26 Room Air 08/09/23 07:42 Room Air 08/09/23 03:36 Room Air 08/08/23 23:57 08/08/23 23:41 08/08/23 23:05 Room Air
[2023-08-09] MEDS ORDERED: CLOPIDOGREL BISULFATE 300 MG TAB ONE (11:08)
--- NOTE | 2023-08-09 11:18 | Post Anesthesia Assessment ---
Date of Service August 09, 2023 Post Sedation Assessment Vital Signs Temp Pulse Pulse Pulse Resp BP BP 08/09/23 11:10 56 L 16 110/65 08/09/23 07:00 53 L 08/09/23 09:04 50 L 16 109/68 08/09/23 08:26 98.2 F 58 L 16 108/67 08/09/23 07:42 98.2 F 59 L 14 127/71 08/09/23 03:36 97.5 F L 58 L 16 116/67 08/08/23 23:57 98/61 L 08/08/23 23:41 56 L 08/08/23 23:05 98.2 F 47 L 16 08/08/23 20:26 59 L 20 08/08/23 19:00 73 18 08/08/23 16:50 62 08/08/23 11:52 68 08/08/23 11:52 08/08/23 15:00 67 18 08/08/23 13:40 68 18 08/08/23 12:48 48 L 08/08/23 11:48 97.9 F 64 18 106/68 BP Pulse Ox O2 Del Method 08/09/23 11:10 98 Room Air 08/09/23 07:00 08/09/23 09:04 98 Room Air 08/09/23 08:26 97 Room Air 08/09/23 07:42 96 Room Air 08/09/23 03:36 94 Room Air 08/08/23 23:57 08/08/23 23:41 08/08/23 23:05 108/76 96 Room Air 08/08/23 20:26 110/79 93 Room Air 08/08/23 19:00 126/77 96 Room Air 08/08/23 16:50 08/08/23 11:52 98 08/08/23 11:52 98 Room Air 08/08/23 15:00 111/64 98 08/08/23 13:40 137/94 96 Room Air 08/08/23 12:48 08/08/23 11:48 99 Room Air Recovery Score Activity: Moves 4 extremities Respiration: Deep Breath/Cough Circulation: +/-20% PreAnes Value Consciousness: Fully Awake Oxygen Saturation: > 92% On Room Air Post Anesthesia Score: 10 Discharge Sedation Level of Care: Fast Track Phase II Post Sedation Plan On clinical assessment, the patient appears to have tolerated the sedation without complications. Patient is recovering as anticipated. Patient will continue to be monitored by nursing and may be discharged when sedation discharge criteria are met per below protocol. Upon Completions of procedure up to 15 minutes continue every 5 minute vital signs and the P.A.R. score; then discharge to a Phase I or Fast Track to Phase II per the following guidelines: * Discharge Patient to appropriate Phase II area if PAR is 8 or greater or return to pre- procedure baseline. The post - procedure orders will be as directed. * If PAR score is less than 8 or not return to pre-procedure baseline then patient will follow Phase I monitoring till PAR is reached for Phase II. The Phase I may be done in procedure room or may call to secure a Phase I area. * If naloxone or flumazenil are used for reversal, hold in Phase I for continued monitoring from when last reversal dose was given for a minimum of 60 minutes or longer pending the nurse and/or physician discretion of patient condition before discharge to Phase II. Please call the Sedation Physician to re-evaluate and complete post-note for discharge to Phase II area. Do NOT discharge from procedure sedation or Phase 1 until post- sedation evaluation note is complete by procedure /sedation MD Sedation Discharge Instructions to be given to the patient at discharge to home.
--- NOTE | 2023-08-09 11:31 | Cardiac Catheterization ---
[facility] Data: Loom Checker Cardiac Status Clinical evaluation leading to the procedure CAD Presenation: Non STEMI Diagnostic Physicians Name: Gomez Barajas MD Closure Device Recommendations: PCI without planned CABG Cardiac Cath Procedure Full Procedure Date August 09, 2023 Pre-Procedure Diagnosis Pre-Procedure Diagnosis: Non STEMI AUC Score AUC Score: 8 Post-Procedure Diagnosis Post-Procedure Diagnosis: Severe CAD and Successful PCI Procedure(s) Performed Procedure(s) Performed: Coronary Angiography, Left Heart Cath and Drug Eluting Stent Ink Grinder Gomez Barajas MD Cable Television Access Coordinator(s) Deibler Estimated Blood Loss Estimated Blood Loss: 15 Medication(s) Medication(s): Fentanyl, Heparin, Lidocaine 1%, Nicardipine, Nitroglycerin and Versed Summary of Findings Indication: Recurrent NSTEMI Access: 6 Fr right radial artery Catheters: JR4, EBU 3.5 guide Findings: LM -normal caliber, no significant disease LAD -medium caliber, 40 to 50% proximal disease, remainder of vessel without significant disease. Small to medium D1 with 98% proximal stenosis and GABRIELA II- III flow. Circumflex -large caliber, dominant, 40% ostial stenosis of large high OM1. Remainder of circumflex/L PDA without significant disease. RCA -small, nondominant, 80% mid segment stenosis LVEDP -11 -- PCI -- Antithrombotic therapy: Heparin, clopidogrel Procedure: Left main cannulated with EBU 3.5 guide Pre-procedure flow GABRIELA 2-3 Prowater wire placed into distal LAD Protocol Manager 50 wire passed across diagonal lesion into distal vessel Proximal diagonal lesion predilated with 2.0 compliant balloon Dilated lesion stented with 2.25 x 23 mm Xience drug-eluting stent Stent post-dilated with 2.5 noncompliant balloon IC vasodilators administered for spasm Post procedure GABRIELA 3 flow, stent well expanded with minimal residual stenosis and no apparent cardiac complications. Arterial Closure: TR band Summary: 1. Severe branch vessel coronary artery disease 98% proximal first diagonal 2. Mild to moderate nonobstructive CAD in major epicardial vessels 40 to 50% proximal LAD (FFR 07/18/2023 negative) 40% ostial large OM1 - 80% mid small non-dominant RCA 3. Normal intracardiac filling pressure 4. Successful PCI of proximal first diagonal with single drug-eluting stent (2.25 x 23 mm Xience; postdilated with 2.5 NC). Recommendations: To PCU for continued monitoring Reloaded with clopidogrel 300 mg in Loom Checker Continue dual-antiplatelet therapy for at least 1 year Continue statin, and ASCVD risk factor modification Consult cardiac Rehab Hemodynamics Rest Ao:: 109/58/80 Final Ao: 99/59/75 LV: 98/11 Recommendations Recommendations: PCI without planned CABG Specimens Specimens: None Radiation Exposure (mGy) 1962 Contrast (mls) 85 Anesthesia Moderate [id number] Procedural Complication(s) None Disposition PCU I attest to the content of the Intraoperative Record and any orders documented therein. Any exceptions are noted below. [facility] Card Cath Procedure Codes Cardiac Catheterization Procedure 1: Cardiovascular Cath Procedures: 69611 Coronaries and LHC (+/-LV) Moderate Sedation Procedure 1: Sedation/Anesthesia: 59256 Mod Sedation by the same physician;Init15 Min Child Age 5 & Up Procedure 2: Sedation/Anesthesia: 54988 Mod Sedation by the same physician; Ea [id number] Minutes Stenting Procedure 1: Cardiovascular Stent Procedures: 59531 Perc transcatheter placement of intracoronary stent(s), with ang PG Care Time/CCT Total # of Minutes Spent Total Time Spent with Patient: Total time spent is greater than 50% in coordination of care (as documented) at patient's floor/unit and/or counseling patient:
[2023-08-09] MEDS ORDERED: SODIUM CHLORIDE 0.9% 1,000 ML IV SCH (11:45)
[2023-08-09] MEDS: ASPIRIN 81 MG ECTAB PO SCH (12:12)
[2023-08-09] MEDS: METOPROLOL TARTRATE 25 MG TAB PO SCH (12:12)
[2023-08-09] MEDS: ATORVASTATIN 40 MG TAB PO SCH (12:12)
--- NOTE | 2023-08-09 14:19 | Hospitalist Progress Note ---
Date of Service August 09, 2023 Assessment & Plan (1) Chest pain: Plan: Presented with exertional chest pain with increasing troponin Cardiac cath on 07/18/2023 showed diffuse atherosclerosis with branch vessel stenosis involving LAD 40 to 50% proximal nonobstructive by FFR with culprit lesion appears to be moderate sized diagonal branch with a long 90% block --- > Medical treatment was contemplated He has been on beta-breanne 12.5 mg daily and also on aspirin and Plavix Initial troponin was 10.5 then uptrended dramatically. Was started on a heparin drip, had chest pain in the morning despite being on heparin drip. EKG was in sinus bradycardia without any other acute ST-T wave changes Status post cardiac cath 08/09, successful PCI of proximal first diagonal with single CRISTAL. DAPT and 1 year, cardiac rehab on discharge. Cardiology on board, appreciate recommendation. Patient with no further chest pain after stent placement. (2) Non-ST elevation FL (NSTEMI): Plan: See above. (3) CAD (coronary artery disease): Plan: As above (4) Hypertension: Plan: Remains controlled DVT prophylaxis IV heparin CODE STATUS Full Admission and Anticipated Discharge Date Admission Date: August 08, 2023 Subjective Patient was seen and examined at bedside. Patient was sitting up in bed, eating his lunch, had cardiac cath and stent placement earlier today, denies further chest pain. Resting comfortably. Not in acute distress. Patient denies any headache or dizziness or sore throat or chest pain or flulike illness. Physical Exam Physical Exam: GENERAL: Alert and oriented x3. NAD, on RA. HEENT: No pallor, no icterus. Pupils equal, round and reactive to light. Oral mucosa moist. NECK: No JVD, no neck masses. HEART: S1 and S2 heard. Regular rate and rhythm. No murmur, no gallop. RESPIRATORY SYSTEM: Normal AP diameter. No accessory muscle use. No wheezing, no crackles. ABDOMEN: Soft, bowel sounds present, nontender, no distention. CENTRAL NERVOUS SYSTEM: No facial droop. Speech is clear. Obeys simple commands. Moves extremities. EXTREMITIES: No edema, no erythema seen. Results & Data Results & Data Vital Signs (Past 12 Hours) Vital Signs Temp Pulse Pulse Pulse Resp BP BP 08/09/23 13:17 60 14 108/70 08/09/23 12:47 60 100/68 08/09/23 12:17 58 L 98/70 L 08/09/23 12:02 59 L 16 108/72 08/09/23 11:43 36.8 C 57 L 14 104/69 08/09/23 11:25 64 16 110/62 08/09/23 11:10 56 L 16 110/65 08/09/23 07:00 53 L 08/09/23 09:04 50 L 16 109/68 08/09/23 08:26 36.8 C 58 L 16 108/67 08/09/23 07:42 36.8 C 59 L 14 127/71 08/09/23 03:36 36.4 C L 58 L 16 116/67 Pulse Ox O2 Del Method 08/09/23 13:17 97 Room Air 08/09/23 12:47 08/09/23 12:17 08/09/23 12:02 95 Room Air 08/09/23 11:43 96 Room Air 08/09/23 11:25 98 Room Air 08/09/23 11:10 98 Room Air 08/09/23 07:00 08/09/23 09:04 98 Room Air 08/09/23 08:26 97 Room Air 08/09/23 07:42 96 Room Air 08/09/23 03:36 94 Room Air
--- NOTE | 2023-08-09 15:33 | Electrocardiogram Report ---
Test Reason : Blood Pressure : / mmHG Vent. Rate : 048 BPM Atrial Rate : 048 BPM P-R Int : 170 ms QRS Dur : 094 ms QT Int : 424 ms P-R-T Axes : 038 -17 015 degrees QTc Int : 378 ms Sinus bradycardia Otherwise normal ECG When compared with ECG of 08-AUG-2023 11:51, No significant change was found Confirmed by Jarocho Galan ([id number]) on 08/09/2023 3:33:46 PM Referred By: REFERRED SELF Confirmed By:Jarocho Galan
--- NOTE | 2023-08-09 15:35 | Electrocardiogram Report ---
Test Reason : Blood Pressure : / mmHG Vent. Rate : 059 BPM Atrial Rate : 059 BPM P-R Int : 172 ms QRS Dur : 094 ms QT Int : 396 ms P-R-T Axes : 044 -39 050 degrees QTc Int : 392 ms Sinus bradycardia with occasional Premature ventricular complexes Left axis deviation Abnormal ECG When compared with ECG of 08-AUG-2023 12:10, (unconfirmed) Premature ventricular complexes are now Present Confirmed by Jarocho Galan ([id number]) on 08/09/2023 3:34:56 PM Referred By: REFERRED SELF Confirmed By:Jarocho Galan
--- NOTE | 2023-08-09 15:51 | Electrocardiogram Report ---
Test Reason : Blood Pressure : / mmHG Vent. Rate : 056 BPM Atrial Rate : 056 BPM P-R Int : 174 ms QRS Dur : 096 ms QT Int : 420 ms P-R-T Axes : 041 -27 055 degrees QTc Int : 405 ms Sinus bradycardia Otherwise normal ECG When compared with ECG of 08-AUG-2023 15:47, (unconfirmed) Premature ventricular complexes are no longer Present Confirmed by Jarocho Galan ([id number]) on 08/09/2023 3:51:23 PM Referred By: REFERRED SELF Confirmed By:Jarocho Galan
--- NOTE | 2023-08-09 15:57 | Electrocardiogram Report ---
Test Reason : Blood Pressure : / mmHG Vent. Rate : 059 BPM Atrial Rate : 059 BPM P-R Int : 170 ms QRS Dur : 096 ms QT Int : 422 ms P-R-T Axes : 040 -20 049 degrees QTc Int : 417 ms Sinus bradycardia Otherwise normal ECG When compared with ECG of 09-AUG-2023 07:21, (unconfirmed) No significant change was found Confirmed by Jarocho Galan ([id number]) on 08/09/2023 3:57:22 PM Referred By: REFERRED SELF Confirmed By:Jarocho Galan
[2023-08-10] MEDS: CLOPIDOGREL BISULFATE 75 MG TAB PO SCH (07:47)
[2023-08-10] MEDS: ASPIRIN 81 MG ECTAB PO SCH (07:48)
[2023-08-10] MEDS: METOPROLOL TARTRATE 25 MG TAB PO SCH (07:48)
[2023-08-10] MEDS: ATORVASTATIN 40 MG TAB PO SCH (07:49)
[2023-08-10 08:32] LABS: BUN Creatinine Ratio 13.7 (10-20); Calcium 9.4 mg/dl (8.6-10.3); Creatinine Clr Calc Pharmacy 81.7 ml/min; Est GFR (African American) 99.7 ml/min; Est GFR (Non-African American) 86.1 ml/min; Magnesium 2.2 mg/dl (1.7-2.4); Potassium 3.9 mmol/L (3.5-5.1)
--- NOTE | 2023-08-10 11:14 | Cardiology Progress Note ---
Date of Service August 10, 2023 Assessment & Plan (1) NSTEMI (non-ST elevated myocardial infarction): (2) CAD (coronary artery disease): Plan Patient seen and examined with recurrent chest pain this morning. Known coronary disease with moderate left anterior sending and high-grade diagonal disease present. Pain relieved with sublingual nitroglycerin this morning despite antiplatelet therapy and anticoagulation with heparin We will refer for acute diagnostic cardiac catheterization question coronary invention LAD LAD diagonal Patient aware of plans Discussed with and daughter 08/10/2023 Patient underwent coronary invention LAD diagonal with excellent result yester day Currently asymptomatic Plan: Discharged home on current regimen low-dose beta-breanne, aspirin and Plavix, statin. We will consider increasing beta-breanne and add an PANCHO inhibitor as clinical course progresses but past hypotension been an limiting issue Cardiac rehab already placed Admission and Anticipated Discharge Date Admission Date: August 08, 2023 Subjective Patient seen and examined, chart, medications, telemetry reviewed. Patient feels almost immediately better. No chest pain or shortness of breath. Ambulatory in the hallway without difficulty. No arrhythmias on telemetry occasional intermittent bundle branch block present Review of Systems Review of Systems: All systems reviewed & are unremarkable except as noted in Subjective Physical Exam Constitutional: WD/WN, vitals as above Eyes: PERRL, conjunctivae normal, anicteric sclerae ENMT: external ear and nose normal, oropharynx normal Neck: trachea midline, no thyromegaly Respiratory: normal respiratory effort, lungs clear to auscultation Cardiovascular: Rate/Rhythm: regular rate and regular rhythm Heart Sounds: normal S1 and normal S2; no gallop and no murmur Palpation: normal PMI Vessels: normal carotid upstroke and radial pulses present (Access site healing well); no JVD and no carotid bruit Extremities: no edema Gastrointestinal (Abdomen): normal bowel sounds, soft, nontender, no hepatosplenomegaly Musculoskeletal: no cyanosis or clubbing, extremities motor strength 5/5 Skin: no rashes, warm and dry Neurologic: PERRL, EOMI, accommodation nl, no face palsy, no dysarthria Psychiatric: A+Ox3, euthymic affect Results & Data Vital Signs (Past 12 Hours) Vital Signs Temp Pulse Pulse Resp BP BP Pulse Ox 08/10/23 10:13 36.5 C 70 18 138/87 98/70 L 96 08/10/23 08:00 47 L 08/10/23 08:00 08/10/23 07:48 36.5 C 70 18 138/87 96 O2 Del Method 08/10/23 10:13 08/10/23 08:00 08/10/23 08:00 Room Air 08/10/23 07:48 Room Air Laboratory Results Laboratory Results - last 24 hr 08/09/23 08/10/23 10:43 07:34 Activ Coag Time Kaolin 227 H Sodium 138 Potassium 3.9 Chloride 105 Carbon Dioxide 29 Anion Gap 4 BUN 13 Creatinine 0.95 Est Cr Clr Drug Dosing 81.7 Est GFR ( Amer) 99.7 Est GFR (Non-Af Amer) 86.1 BUN/Creatinine Ratio 13.7 Glucose 106 H Calcium 9.4 Magnesium 2.2
--- NOTE | 2023-08-10 14:15 | Discharge Summary ---
Date of Service August 10, 2023 Admission HPI Per Admitting Provider 62-year-old male with a significant past medical history of hypertension, prediabetes and also recent diagnosis of significant CAD on cardiac cath following NSTEMI has been complaining of chest pain since this afternoon. He has been helping his sons to moving furniture , following that he was taking rest on a couch and got chest pressure followed by chest pain that radiated to left arm. He took 2 nitro sublingual and also 81 mg aspirin with slight improvement of the chest pain. He still has some chest pressure during examination but did not have any sweating, any palpitation, any shortness of breath, any nausea or vomiting associated with it He has been getting aspirin and Plavix and also beta-breanne and lisinopril following recent cardiac cath with significant CAD when medical management was contemplated. His initial troponin was 10.5 and repeat check came up to 176.6 and at the time he was advised admission. He was started with intravenous heparin and after getting full dose of aspirin and he will be admitted to telemetry unit for continuation of care. Admission Exam Per Admitting Provider Physical Exam: Lying in bed with minimal chest pressure but without any other symptoms Constitutional: well developed, well nourished and + ill appearing Eyes: PERRL, conjunctivae normal, anicteric sclerae ENMT: external ear and nose normal, oropharynx normal Neck: trachea midline, no thyromegaly Respiratory: normal respiratory effort, lungs clear to auscultation Cardiovascular: Rate/Rhythm: regular rate and regular rhythm Heart Sounds: normal S1 and normal S2; no murmur Extremities: no edema Gastrointestinal (Abdomen): Inspection/Auscultation: normal bowel sounds; abdomen not distended Percussion/Palpation: abdomen soft; abdomen nontender Musculoskeletal: No acute arthritis involving any joint Neurologic: normal touch/pain/proprioception and moves all extremities; no focal motor deficits Principal Diagnosis NSTEMI status post cardiac catheterization with PCI of proximal first diagonal with single DE Discharge Exam Constitutional: WD/WN, vitals as above, NAD, sitting up in bed, pleasant, conversing easily Respiratory: normal respiratory effort, lungs clear to auscultation, no wheeze, rales, rhonchi. Normal insp/exp effort, no accessory muscle use Cardiovascular: RRR, no murmur, no edema Vessels: no JVD or carotid bruit Chest: normal inspection of chest Abdomen: normal bowel sounds, soft, nontender, no hepatosplenomegaly Musculoskeletal: no cyanosis or clubbing, extremities motor strength 5/5 Skin: no rashes, warm and dry normal turgor Neurologic: PERRL, EOMI, accommodation nl, no face palsy, no dysarthria CN's II- XI intact bilaterally and moves all extremities Psychiatric: A+Ox3, euthymic affect Discharge Data Allergies Allergy/AdvReac Type Severity Reaction Status Date / Time No Known Allergies Allergy Verified 03/26/19 19:14 Consultations 08/08/23 16:38 ED Decision to Admit Stat 08/08/23 17:41 Consult Cardiology Routine Procedures Performed Operation Date: 08/09/23 10:00 Actual Procedures p Cineradiography w/Routine Exam - Gomez Barajas MD p Cath, Left with Cors and Vent - Gomez Barajas MD s Drug Eluting Stent SGl Vessel - Gomez Barajas MD Ordered Studies 08/09/23 09:59 CL Cath Imgs for PACS use only Urgent Hospital Course (1) Chest pain: (2) Non-ST elevation OK (NSTEMI): (3) CAD (coronary artery disease): Presented with exertional chest pain with increasing troponin Cardiac cath on 07/18/2023 showed diffuse atherosclerosis with branch vessel stenosis involving LAD 40 to 50% proximal nonobstructive by FFR with culprit lesion appears to be moderate sized diagonal branch with a long 90% block --- > Medical treatment was contemplated He has been on beta-breanne 12.5 mg daily and also on aspirin and Plavix Initial troponin was 10.5 then uptrended . Was started on a heparin drip, had chest pain in the morning despite being on heparin drip. EKG was in sinus bradycardia without any other acute ST-T wave changes Status post cardiac cath 08/09, successful PCI of proximal first diagonal with single CRISTAL. DAPT for 1 year, cardiac rehab on discharge. Patient with no further chest pain after stent placement. Patient to follow-up with cardiology and PCP after discharge Please note the above document was generated using voice recognition software. It may contain grammatical, syntax or spelling errors. Any formal questions or concerns about the content, text or information contained within the body of this dictation should be directly addressed to the provider for clarification Total Time Total Time Spent Total Time Spent (In Minutes): 45 Total Time Includes: Examination of the Patient, Discharge Planning, Medication Reconciliation, Communication With Other Providers and Other Discharge Plan Discharge Items Patient Disposition: Home - Self-Care Reason For Visit: CHEST PAIN,INCREASE TROP,CAD Discharge Diagnosis: NSTEMI status post PCI of proximal first diagonal with single CRISTAL Activity: Resume your previous activity Non-emergency contact: Primary Care Provider Call non-emergency contact if: you have any medication questions and your symptoms worsen Follow-up/Referrals: Brannon Anaya DO [Acute Care Physical Therapist] - (The Cardiology office will contact you with a follow up appointment. ) Sony Soto PA-C [Primary Care Provider] - Everardo Flores PA-C [Outside Practitioners] - (Date & Time 08/12/2023 10:00 AM Provider Everardo Flores PA-C Department [facility] ) Diet: Regular Addtl Attending Provider Instructions: You were admitted to the hospital due to chest pain. You underwent cardiac catheterization and had a stent placed in one of your heart vessels. Please continue to take your medication as prescribed before. An appointment will be set up with your primary care doctor. Pending Studies at Discharge: No Stand-Alone Forms: My [facility], Smoking Cessation Medications and DC Order Prescriptions: Continued atorvastatin 40 mg Tablet 40 mg PO QAM Qty: 30 0RF clopidogrel 75 mg Tablet 75 mg PO QAM Qty: 30 0RF aspirin 81 mg Tablet,Delayed Release (Dr/Ec) 81 mg PO QAM Qty: 30 0RF nitroglycerin [Nitrostat] 0.4 mg Tablet, Sublingual 0.4 mg sublingual Q5M PRN (Reason: chest pain) Qty: 90 0RF metoprolol tartrate 25 mg Tablet 12.5 mg PO DAILY Qty: 30 0RF Discharge Orders: Discharge Order (Routine); Ordered 08/10/23 Ordered By: Jem Brown Admission Data Admit Date/Time: 08/08/23 17:22 Attending Provider: Jem Brown Admit Provider: Sissy Tai Primary Care Provider: Sony Soto Other Providers: Sissy Tai ; Rashid Leone ; Adalgisa Yoder Other Interventions: Discharge Summary Assessment (RN) Last Done: 08/10/23 10:13
== END 2023-08-10 11:49 | disposition home or self-care (01) | DRG 322 ==
LOC: ED 11:40 → SUATTDRO 17:22 → EDINP 17:22 → 2E 19:42